=== PATIENT | female | born 1970 | race Asian ===

== ENCOUNTER 2017-04-08 09:34 | Emergency (ER) | payer BC ==
[~2017-04-08] VITALS: Ht 162.6 cm; Wt 86.2 kg
[~2017-04-08 09:34] MED LIST: CARV25TA PO; CLARITIN10 M1 PO; FURO20TA67 PO; PENICILLIN VK250 MG OR; POT CHLORIDE8 MEQ OR
[2017-04-08 09:45] VITALS: BP 136/98; TEMP 98.4
== END 2017-04-08 11:45 | disposition home or self-care (01) ==
LOC: ED 09:34
DX: B37.0 Candidal stomatitis (principal)
CPT/HCPCS: 99281

== ENCOUNTER 2018-10-21 09:22 | Outpatient (CLI) | payer BC | END 2018-10-21 23:42 | disposition home or self-care (01) | LOC: RAD 09:22 | DX: R07.9 Chest pain, unspecified (principal) | CPT/HCPCS: 93005 ==

== ENCOUNTER 2019-02-24 13:27 | Outpatient (CLI) | payer BC | END 2019-02-24 20:22 | disposition home or self-care (01) | LOC: RESP 13:27 | DX: R07.9 Chest pain, unspecified (principal); R06.02 Shortness of breath | CPT/HCPCS: 93005 ==

== ENCOUNTER 2019-10-28 09:42 | Outpatient (CLI) | payer BC | END 2019-10-28 19:44 | disposition home or self-care (01) | LOC: RESP 09:42 | DX: Z01.818 Encounter for other preprocedural examination (principal) | CPT/HCPCS: 93005 ==

== ENCOUNTER 2020-02-15 08:30 | Outpatient (CLI) | payer BC ==
[2020-02-15 09:23] LABS: POTASSIUM 4.1 mmol/L (3.6-5.2)
[2020-02-15 10:38] LABS: PLATELET COUNT 193 K/uL (152-353)
== END 2020-02-15 19:03 | disposition home or self-care (01) ==
LOC: LAB 08:30
PROVIDERS: ATTEND Plastic Surgery
DX: Z01.812 Encounter for preprocedural laboratory examination (principal); Z01.818 Encounter for other preprocedural examination; Z01.810 Encounter for preprocedural cardiovascular examination
CPT/HCPCS: 36415; 80048; 85027; 93005

== ENCOUNTER 2020-04-05 09:40 | Outpatient (CLI) | payer BC, OTHER | END 2020-04-05 21:44 | disposition home or self-care (01) | LOC: LAB 09:40 | PROVIDERS: ATTEND Family Medicine | DX: U07.1 COVID-19 (principal); Z20.828 Contact with and (suspected) exposure to other viral communicable diseases | CPT/HCPCS: 87635; G2023; U0003 ==

== ENCOUNTER 2020-04-19 11:25 | Outpatient (CLI) | payer BC, OTHER | END 2020-04-19 21:33 | disposition home or self-care (01) | LOC: LAB 11:25 | PROVIDERS: ATTEND Family Medicine | DX: Z20.828 Contact with and (suspected) exposure to other viral communicable diseases (principal) | CPT/HCPCS: 87635; G2023; U0003 ==

== ENCOUNTER 2020-09-30 14:49 | Outpatient (CLI) | payer BC | END 2020-09-30 22:36 | disposition home or self-care (01) | LOC: MAMMO 14:49 | PROVIDERS: ATTEND Family Medicine | DX: Z12.31 Encounter for screening mammogram for malignant neoplasm of breast (principal) ==

== ENCOUNTER 2021-12-21 15:24 | Outpatient (CLI) | payer BC | END 2021-12-21 19:27 | disposition home or self-care (01) | LOC: MAMMO 15:24 | PROVIDERS: ATTEND Family Medicine | DX: Z12.31 Encounter for screening mammogram for malignant neoplasm of breast (principal) ==